=== PATIENT | male | born 1995 | race Caucasian/White ===

== ENCOUNTER 2024-06-08 08:31 | Emergency (ER) | payer OTHER, SELFPAY ==
--- NOTE | ~2024-06-08 | CT_ITS ---
CT abdomen pelvis wo con Ordering provider: Lloyd Galloway MD History: 28 years Male with . lolis groin pain(R>L),ACUTE,NKI . Comparison: None. Technique: CT abdomen and pelvis without IV and without oral contrast. Automated exposure control and iterative reconstruction technique were employed. The dose-length product was 826.81 mGy-cm. Findings: VISUALIZED LOWER CHEST: Normal. UPPER ABDOMINAL ORGANS: Liver: Normal. Gallbladder: Normal. Spleen: Normal. Benign calcifications. Splenule seen anteriorly. Stomach/duodenum: Normal. Pancreas: Normal. Adrenals: Normal. Kidneys: Normal. PELVIC ORGANS: The bladder is underfilled. BOWEL AND MESENTERY: Colon: No evidence of diverticulitis. Fecal material is loaded in the right side of the colon. Normal appendix. Small Bowel: Normal. No obstruction. Peritoneum/mesentery: No free air or free fluid. No mesenteric lymphadenopathy. Mesenteric lymph node s are seen in the right lower quadrant with the largest measures 1 cm. RETROPERITONEUM: Normal aorta. No retroperitoneal lymphadenopathy. MUSCULOSKELETAL: Superficial soft tissues: Small fat-containing umbilical hernia. Otherwise, The superficial soft tiss ues are normal. Bones: Normal spine. IMPRESSION: 1. No evidence of appendicitis, diverticulitis or intestinal obstruction. No kidney stones. 2. Borderline lymph nodes in the right side of the mesentery. Reviewed, dictated and finalized at location A. IMPRESSION: 1. No evidence of appendicitis, diverticulitis or intestinal obstruction. No k idney stones. 2. Borderline lymph nodes in the right side of the mesentery.
[2024-06-08 08:31] VITALS: BP 150/98; PULSE 75; RESP 18; TEMP 36.2; O2SAT 99
--- NOTE | 2024-06-08 08:45 | ED_ITS ---
HPI - Abdominal Pain General Chief Complaint: Abdominal Pain Stated Complaint: abdominal pain Time Seen by Provider: 06/08/24 08:44 Source: patient Mode of arrival: ambulatory Limitations: no limitations History of Present Illness HPI narrative: Patient is a 28-year-old male with bilateral groin pains over the past day. He does heavy lifting for work. He claims right is a little worse than left groin. Not particularly abdominal pain. No associated nausea vomiting or diarrhea. No fever or chills. No anorexia. He said the pain is not terrible and minimal but his wanted him to be seen today. MD elicited complaint: other ( Bilateral groin pain) Pertinent past history: none Onset (ago): day(s) (1) Pain Consistency: intermittent ( only happens when he is walking) Location: pelvis and groin ( bilateral and right worse than left) Severity: mild Pain scale (0-10): 3 Quality: stabbing and sharp Radiation: none Migration to: no migration Exacerbating factors: movement Relieving factors: rest Context: confirms other ( patient having bilateral groin pains over the past day without true abdominal pain and no nausea vomiting or diarrhea) Associated symptoms: denies other symptoms Treatments prior to arrival: other ( none) Related Data Allergies Allergy/AdvReac Type Severity Reaction Status Date / Time No Known Allergies Allergy Verified 06/08/24 08:34 Review of Systems Review of Systems: All systems reviewed & are unremarkable except as noted in HPI and below Constitutional: Constitutional: Reports no additional constitutional complaints Eyes: Eyes: Reports no additional eye complaints ENT: Reports system reviewed and no additional complaints, except as documented Cardiovascular: Cardiovascular: Reports no additional cardiovascular complaints Respiratory: Respiratory: Reports no additional respiratory complaints Gastrointestinal: Gastrointestinal: Reports no additional gastrointestinal complaints Genitourinary: Genitourinary: Reports no additional male genitourinary complaints Musculoskeletal: Musculoskeletal: Reports no additional musculoskeletal complaints Integumentary/Breasts: Skin/Breast: Reports system reviewed and no additional complaints, except as docu Neurologic: Reports system reviewed and no additional complaints, except as documented Psychiatric: Psychiatric: Reports no additional psychiatric complaints Endocrine: Endocrine: Reports no additional endocrine complaints Hematologic/Lymphatic: Hematologic/Lymphatic: Reports no additional hematologic/lymphatic complaints Allergic/Immunologic: Allergic/Immunologic: Reports no additional allergic/immunologic complaints Exam Const: General: healthy appearing Nutritional Appearance: well nourished Orientation/consciousness: patient oriented x3 Limitations: no limitations HENMT: Head: normal to inspection Ears: external ears normal Face/Nose/Sinus: Normal external nose present Eyes: Conjunctivae: conjunctivae normal Pupils: Equal, round and reactive pupils present EOM: EOMs intact bilaterally Neck: Neck: normal visual inspection Chest: Chest palpation & inspection: normal inspection of the chest Resp: Effort & Inspection: normal respiratory effort and not labored Auscultation: clear to auscultation bilaterally and no crackles Cardio: Rate: regular rate Rhythm: regular rhythm Heart sounds: no murmurs GI: Inspection: non-distended GI Palp: Yes Soft to palpation and Yes Tenderness to palpation present (GI) (bilateral groins only when he walks; not with palpation exam) Auscultation: normal bowel sounds : General: Yes bladder normal to palpation Back/Spine/Pelvis: Back: no CVA tenderness Skin: General skin exam: normal color Rashes: no rashes Wounds: no wounds Neuro: General: patient oriented x3 Cranial nerves: Yes Nystagmus not present Speech: normal speech Extrem: General: normal to inspection Psych: Mental Status: mental status grossly normal Affect: normal affect Attitude: cooperative Course Vital Signs Vital signs: Vital Signs Temperature 36.2 C L 06/08/24 08:31 Pulse Rate 75 06/08/24 08:31 Respiratory Rate 18 06/08/24 08:31 Blood Pressure 150/98 H 06/08/24 08:31 Pulse Oximetry 99 06/08/24 08:31 Oxygen Delivery Room Air 06/08/24 08:31 Temperature 36.2 C L 06/08/24 08:31 Pulse Rate 75 06/08/24 08:31 Respiratory Rate 18 06/08/24 08:31 Blood Pressure 150/98 H 06/08/24 08:31 Pulse Oximetry 99 06/08/24 08:31 Oxygen Delivery Room Air 06/08/24 08:31 MDM - Abdominal Pain MDM Narrative Medical decision making narrative: 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 No true abdominal pain or nausea vomiting or diarrhea. We will get a CT scan without contrast for reassurance. It appears to be musculoskeletal in nature. Patient declined lab work at this time. Patient does not like the site of blood. Imaging Data Attestation: I personally reviewed and interpreted this imaging study as follows: Radiologist's impression: ITS Impressions Abdomen/Pelvis CT 06/08/24 09:16 IMPRESSION: 1. No evidence of appendicitis, diverticulitis or intestinal obstruction. No kidney stones. 2. Borderline lymph nodes in the right side of the mesentery. Discharge Plan Discharge Clinical Impression: Mesenteric lymphadenitis Groin strain Qualifiers: Encounter type: initial encounter Laterality: right Qualified Code(s): S76.211A - Strain of adductor muscle, fascia and tendon of right thigh, initial encounter Patient Disposition: Home, Self-Care Condition: Stable Instructions: Antibiotic Form, Groin Strain (ED), Mesenteric Adenitis (ED) Patient Language: Serbian Prescriptions: New ibuprofen 800 mg tablet 800 mg PO TID PRN (Reason: pain) Qty: 20 0RF Follow-up/Referrals: Richie Harrison MD [Primary Care Provider] - Time of Disposition: 09:39
--- NOTE | 2024-06-08 09:20 | PC.NURSE ---
PT HAD DECLINED LAB WORK, HAS HAD CT SCAN AND IS AWAITING RESULTS AT THIS TIME. WILL CONTINUE TO MONITOR.
[2024-06-08 09:45] VITALS: BP 115/86; PULSE 60; RESP 18; O2SAT 98
== END 2024-06-08 09:45 | disposition home or self-care (01) ==
PROVIDERS: Emergency Provider Emergency Medicine; PCP Family Medicine
DX: I88.0 Nonspecific mesenteric lymphadenitis (principal); S76.211A Strain of adductor muscle, fascia and tendon of right thigh, initial encounter; X50.0XXA Overexertion from strenuous movement or load, initial encounter
CPT/HCPCS: 74176; 99284